=== PATIENT | female | born 1965 | race Caucasian/White ===

== ENCOUNTER 2019-04-09 23:29 | Emergency (ER) | payer SELFPAY ==
[2019-04-09 23:50] VITALS: BP 129/77
--- NOTE | 2019-04-10 00:03 | EDM.PDOC ---
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 Her tetanus is UTD. She has no known hx of any type of Hepatitis or HIV. She was tested for hepatitis in the past before starting Remicade for ulcerative colitis. 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: Other (see below) (none) - Related Data Allergies Allergy/AdvReac Type Severity Reaction Status Date / Time bupropion HCl [From Zyban] Allergy Rash Verified 12/20/16 18:11 latex Allergy Itching Verified 12/20/16 18:11 promethazine HCl AdvReac Shaking Verified 12/21/16 14:23 [From Phenergan] Home Meds: Home Meds Citalopram [Citalopram HBr] 20 mg PO DAILY 12/02/13 [History] Simvastatin 40 mg PO DAILY 12/02/13 [History] Alendronate Sodium [Alendronate] 1 tab PO WEEKLY 07/26/14 [History] Cholecalciferol (Vitamin D3) [Vitamin D3] 5,000 unit PO DAILY 07/26/14 [History] Cyanocobalamin (Vitamin B-12) [Vitamin B-12] 1,000 mcg PO DAILY 07/26/14 [ History] Estropipate 0.75 mg PO DAILY 07/26/14 [History] Folic Acid 1 mg PO DAILY 09/24/15 [History] Levothyroxine Sodium 88 mcg PO DAILY 12/20/16 [History] Ondansetron [Ondansetron ODT] 4 mg PO Q6H PRN #6 tab.rapdis 12/20/16 [Rx] Past Medical History HEENT History: Reports: Cataract, Impaired Vision Gastrointestinal History: Reports: Bowel Obstruction, Chronic Diarrhea, Inflammatory Bowel Disease Other Gastrointestinal History: crohns [employer]NER History: Reports: Psychiatric History: Reports: Depression Endocrine/Metabolic History: Reports: Hypothyroidism Oncologic (Cancer) History: Reports: Thyroid - Infectious Disease History Infectious Disease History: Reports: Chicken Pox - Past Surgical History HEENT Surgical History: Reports: Cataract Surgery Female Surgical History: Reports: Hysterectomy Endocrine Surgical History: Reports: Thyroidectomy Social & Family History - Tobacco Use Smoking Status *Q: Never Smoker - Caffeine Use Caffeine Use: Reports: None - Recreational Drug Use Recreational Drug Use: No ED ROS GENERAL - Review of Systems Review Of Systems: See Below Constitutional: Reports: No Symptoms Skin: Reports: Wound (tiny puncture to L index finger tip) Neurological: Reports: No Symptoms ED EXAM, SKIN/RASH Exam: See Below Exam Limited By: No Limitations General Appearance: Alert, WD/WN, No Apparent Distress Neurological: Alert, Oriented, CN II-XII Intact, Normal Cognition, No Motor/ Sensory Deficits Psychiatric: Normal Affect, Normal Mood Skin: Warm, Dry, Intact (puncture small enough as to be not visible to the eye. ), Normal Color, No Rash Location, Skin: Upper Extremity, Left Characteristics: Fine Associated features: No: Warmth, Tenderness, Swelling, Induration, Lymphangitis , Inflammation Lymphatic: No Adenopathy Course - Vital Signs Last Recorded V/S: Last Vital Signs Temp 35.4 C 04/09/19 23:49 Pulse 73 04/09/19 23:49 Resp 16 04/09/19 23:49 BP 129/77 04/09/19 23:49 Pulse Ox 96 04/09/19 23:49 - Orders/Labs/Meds Orders: Active Orders 24 hr Category Date Time Status HBSAG SCREEN Routine Lab 04/09/19 23:48 Ordered HCV ANTIBODY Routine Lab 04/09/19 23:48 Ordered HEPATITIS B SURF AB QUANT Routine Lab 04/09/19 23:48 Ordered HIV RAPID SCREEN RLFX COMFIRM [CHEM] Stat Lab 04/09/19 23:48 Ordered Departure - Departure Time of Disposition: 00:03 Disposition: Home, Self-Care 01 Condition: Good Clinical Impression: Needle stick injury of finger Qualifiers: Encounter type: initial encounter Qualified Code(s): S61.239A - Puncture wound without foreign body of unspecified finger without damage to nail, initial encounter; W27.3XXA - Contact with needle (sewing), initial encounter - Discharge Information *PRESCRIPTION DRUG MONITORING PROGRAM REVIEWED*: No *COPY OF PRESCRIPTION DRUG MONITORING REPORT IN PATIENT KAYE: No Instructions: Needlestick Injury, [id number] Referrals: Zeny Loredo MD [Primary Care Provider] - Additional Instructions: Follow up if you need interpretation of your pending test results. Recheck if any of the symptoms on your list develop. - My Orders Last 24 Hours: My Active Orders 04/09/19 23:48 HBSAG SCREEN Routine HCV ANTIBODY Routine HEPATITIS B SURF AB QUANT Routine HIV RAPID SCREEN RLFX COMFIRM [CHEM] Stat - Assessment/Plan Last 24 Hours: My Active Orders 04/09/19 23:48 HBSAG SCREEN Routine HCV ANTIBODY Routine HEPATITIS B SURF AB QUANT Routine HIV RAPID SCREEN RLFX COMFIRM [CHEM] Stat
[2019-04-11 08:16] LABS: HBSAG SCREEN Negative (Negative)
== END 2019-04-10 00:13 | disposition home or self-care (01) ==
LOC: JP.ED 23:29
DX: S61.231A Puncture wound without foreign body of left index finger without damage to nail, initial encounter (principal); E03.9 Hypothyroidism, unspecified; F32.9 Major depressive disorder, single episode, unspecified; Z79.899 Other long term (current) drug therapy; Z98.49 Cataract extraction status, unspecified eye; Z90.710 Acquired absence of both cervix and uterus; Z91.040 Latex allergy status; Z88.8 Allergy status to other drugs, medicaments and biological substances; W27.3XXA Contact with needle (sewing), initial encounter
CPT/HCPCS: 36415; 86317; 86803; 87340; 87449; 99281; 99283

== ENCOUNTER 2020-09-18 13:17 | Emergency (ER) | payer BC ==
[2020-09-18 13:33] VITALS: BP 133/79; PULSE 76
[2020-09-18] MEDS ORDERED: Ketorolac 30 MG/ML SDV IM ONE (14:13)
[2020-09-18] MEDS ORDERED: Sodium Chloride 0.9% 1,000 ML IV ONE ×2 (14:13→14:20)
[2020-09-18] MEDS ORDERED: Sodium Chloride 0.9% 10 ML Syringe FLUSH PRN ×2 (14:14→14:21)
[2020-09-18] MEDS ORDERED: Ketorolac 30 MG/ML SDV IVPUSH ONE (14:22)
--- NOTE | 2020-09-18 14:31 | EDM.PDOC ---
<RoseannDasha M - Last Filed: 09/18/20 15:37> ED HPI GENERAL MEDICAL PROBLEM - General Chief Complaint: Respiratory Problem Stated Complaint: CHEST PAINS Time Seen by Provider: 09/18/20 13:35 Source of Information: Reports: Patient, RN, RN Notes Reviewed History Limitations: Reports: No Limitations - History of Present Illness INITIAL COMMENTS - FREE TEXT/NARRATIVE: Pt seen PCP in clinic on Tuesday and indicated they prescribed prednisone taper dose and Z pack. Pt does not feel better and c/o RUQ pain 6/10 that radiates to R flank. Clinic told her to come to ER for evaluation. Pt denies N/V, night sweats, chills, or fever. SOB with exertion. Ileostomy is producing loose stools. - Related Data Allergies Allergy/AdvReac Type Severity Reaction Status Date / Time bupropion HCl [From Zyban] Allergy Rash Verified 12/20/16 18:11 latex Allergy Itching Verified 12/20/16 18:11 promethazine HCl AdvReac Shaking Verified 12/21/16 14:23 [From Phenergan] Home Meds: Home Meds Citalopram [Citalopram HBr] 20 mg PO DAILY 12/02/13 [History] Alendronate Sodium [Alendronate] 1 tab PO WEEKLY 07/26/14 [History] Levothyroxine Sodium 88 mcg PO DAILY 12/20/16 [History] Azithromycin [Zithromax] 250 mg PO DAILY 09/18/20 [History] Cyclobenzaprine [Flexeril] 10 mg PO ASDIRECTED 09/18/20 [History] Simvastatin [Zocor] 10 mg PO DAILY 09/18/20 [History] predniSONE [Prednisone] 20 mg PO DAILY 09/18/20 [History] Past Medical History HEENT History: Reports: Cataract, Impaired Vision Gastrointestinal History: Reports: Bowel Obstruction, Chronic Diarrhea, Inflammatory Bowel Disease Other Gastrointestinal History: crohns [employer]GAGE History: Reports: Psychiatric History: Reports: Depression Endocrine/Metabolic History: Reports: Hypothyroidism Oncologic (Cancer) History: Reports: Thyroid - Infectious Disease History Infectious Disease History: Reports: Chicken Pox - Past Surgical History HEENT Surgical History: Reports: Cataract Surgery Female Surgical History: Reports: Hysterectomy Endocrine Surgical History: Reports: Thyroidectomy Social & Family History - Tobacco Use Tobacco Use Status *Q: Never Tobacco User - Caffeine Use Caffeine Use: Reports: None - Recreational Drug Use Recreational Drug Use: No ED ROS GENERAL - Review of Systems Review Of Systems: See Below Constitutional: Reports: No Symptoms HEENT: Reports: No Symptoms Respiratory: Reports: Shortness of Breath (with exertion) Cardiovascular: Reports: No Symptoms Endocrine: Reports: No Symptoms GI/Abdominal: Reports: Other (ileostomy. RUQ discomfort. ) : Reports: No Symptoms Skin: Reports: No Symptoms Neurological: Reports: No Symptoms Psychiatric: Reports: No Symptoms Hematologic/Lymphatic: Reports: No Symptoms Immunologic: Reports: No Symptoms ED EXAM, GENERAL - Physical Exam Exam: See Below Exam Limited By: No Limitations General Appearance: Alert, WD/WN, Mild Distress Head: Normocephalic Neck: Normal Inspection, Full Range of Motion Respiratory/Chest: No Respiratory Distress, Lungs Clear, Normal Breath Sounds Cardiovascular: Regular Rate, Rhythm GI/Abdominal: Normal Bowel Sounds, Soft (Female) Exam: Deferred Rectal (Female) Exam: Deferred Extremities: Normal Range of Motion Neurological: Alert, Oriented, CN II-XII Intact Psychiatric: Normal Affect, Anxious Skin Exam: Warm, Dry Course - Orders/Labs/Meds Labs: Labs look good. - Radiology Interpretation Free Text/Narrative:: CXR looks good Departure - Departure Time of Disposition: 15:38 Disposition: Home, Self-Care 01 Condition: Good Clinical Impression: Bronchitis, Atypical chest pain - Discharge Information *PRESCRIPTION DRUG MONITORING PROGRAM REVIEWED*: Not Applicable *COPY OF PRESCRIPTION DRUG MONITORING REPORT IN PATIENT KAYE: Not Applicable Instructions: Nonspecific Chest Pain, Adult, [id number], Upper Respiratory Infection, Adult, [id number] Referrals: Kosta Birch NP [Primary Care Provider] - Forms: ED Department Discharge Care Plan Goals: Your chest xray and labs look great. Continue with the prescribed medication from your primary provider. If your symptoms do not improve or worsen, please call your primary provider or come back to the Er. Make a conscious effort to stay hydrated and eat a well balanced diet. Sepsis Event Note (ED) - Evaluation Sepsis Screening Result: No Definite Risk - Problem List Review Problem List Initiated/Reviewed/Updated: Yes - Assessment/Plan Plan: Your chest xray and labs look great. Continue with the prescribed medication from your primary provider. If your symptoms do not improve or worsen, please call your primary provider or come back to the Er. Make a conscious effort to stay hydrated and eat a well balanced diet. <Denis Hope - Last Filed: 09/20/20 12:04> Course - Vital Signs Last Recorded V/S: Last Vital Signs Temp 98.1 F 09/18/20 13:33 Pulse 76 09/18/20 13:33 Resp 16 09/18/20 13:33 BP 133/79 09/18/20 13:33 Pulse Ox 96 09/18/20 13:33 - Orders/Labs/Meds Labs: Laboratory Tests 09/18/20 Range/Units 14:34 Sodium 138 L (140-148) mmol/L Potassium 4.2 (3.6-5.2) mmol/L Chloride 103 (100-108) mmol/L Carbon Dioxide 26 (21-32) mmol/L Anion Gap 13.2 (5.0-14.0) mmol/L BUN 19 H (7-18) mg/dL Creatinine 0.9 (0.6-1.0) mg/dL Est Cr Clr Drug Dosing 67.07 mL/min Estimated GFR (MDRD) > 60 (>60) Glucose 106 (74-106) mg/dL Calcium 9.4 (8.5-10.1) mg/dL Total Bilirubin 0.3 (0.2-1.0) mg/dL AST 19 (15-37) U/L ALT 27 (12-78) U/L Alkaline Phosphatase 61 (46-116) U/L Total Protein 7.6 (6.4-8.2) g/dL Albumin 3.6 (3.4-5.0) g/dL Globulin 4.0 H (2.3-3.5) g/dL Albumin/Globulin Ratio 0.9 L (1.2-2.2) Meds: Medications Discontinued Medications Generic Name Dose Route Start Last Admin Trade Name Freq PRN Reason Stop Dose Admin Sodium Chloride 1,000 mls @ 999 mls/hr 09/18/20 14:13 Normal Saline IV 09/18/20 15:13 .BOLUS ONE Sodium Chloride 1,000 mls @ 999 mls/hr 09/18/20 14:20 09/18/20 14:36 Normal Saline IV 09/18/20 15:20 999 mls/hr .BOLUS ONE Administration Ketorolac Tromethamine 30 mg 09/18/20 14:13 Toradol IM 09/18/20 14:14 ONETIME ONE Ketorolac Tromethamine 30 mg 09/18/20 14:22 09/18/20 14:34 Toradol IVPUSH 09/18/20 14:23 30 mg ONETIME ONE Administration Sodium Chloride 10 ml 09/18/20 14:14 Saline Flush FLUSH ASDIRECTED PRN Keep Vein Open Sodium Chloride 10 ml 09/18/20 14:21 09/18/20 14:36 Saline Flush FLUSH 10 ml ASDIRECTED PRN Administration Keep Vein Open Departure - Departure Time of Disposition: 15:51 Attestation - Student - Attestation Statement Attestation Statement: I personally performed or re-performed the physical examination and medical decision making. I have verified all student documentation or findings, including history, physical exam and/or medical decision making.
--- NOTE | 2020-09-18 14:44 | CR ---
CHEST: 2 view CLINICAL HISTORY:SOB COMPARISON:2010 FINDINGS: The heart size, pulmonary vascularity and hilar structures are normal. No infiltrate effusion or pneumothorax is seen. IMPRESSION: No acute cardiopulmonary process.
== END 2020-09-18 15:50 | disposition home or self-care (01) ==
LOC: JP.ED 13:17
DX: J40 Bronchitis, not specified as acute or chronic (principal); F32.9 Major depressive disorder, single episode, unspecified; E03.9 Hypothyroidism, unspecified; Z90.710 Acquired absence of both cervix and uterus; Z91.040 Latex allergy status; Z88.8 Allergy status to other drugs, medicaments and biological substances; Z79.899 Other long term (current) drug therapy
CPT/HCPCS: 36415; 71046; 80053; 96374; 99285; J1885; J7040; 99284

== ENCOUNTER 2022-06-18 15:41 | Emergency (ER) | payer BC ==
[2022-06-18] MEDS ORDERED: diphenhydrAMINE 25 MG Cap PO ONE (16:34)
[2022-06-18] MEDS ORDERED: EPINEPHrine 1 MG/ML SDV IM ONE (16:34)
[2022-06-18] MEDS ORDERED: Ondansetron 4 MG Tab.DIS PO ONE (16:34)
[2022-06-18 17:11] VITALS: PULSE 74
[2022-06-18 17:43] VITALS: BP 111/53
== END 2022-06-18 17:44 | disposition home or self-care (01) ==
LOC: JP.ED 15:41
DX: T63.481A Toxic effect of venom of other arthropod, accidental (unintentional), initial encounter (principal); Z88.8 Allergy status to other drugs, medicaments and biological substances; Z91.040 Latex allergy status; Z79.899 Other long term (current) drug therapy
CPT/HCPCS: 96372; 99282; A9270; J0171; Q0162; 99283

== ENCOUNTER 2022-12-07 23:48 | Emergency (ER) | payer BC ==
[2022-12-08 00:52] LABS: ESTIMATED GFR 65 mL/min (>60)
[2022-12-08] MEDS ORDERED: Sodium Chloride 0.9% 10 ML Syringe FLUSH PRN (01:55)
[2022-12-08] MEDS ORDERED: Sodium Chloride 0.9% 1,000 ML IV SCH (02:00)
[2022-12-08 03:20] VITALS: BP 121/60; PULSE 64
== END 2022-12-08 03:20 | disposition home or self-care (01) ==
LOC: JP.ED 23:48
DX: R20.2 Paresthesia of skin (principal); E86.0 Dehydration; E03.9 Hypothyroidism, unspecified; Z91.040 Latex allergy status; Z88.8 Allergy status to other drugs, medicaments and biological substances; Z79.899 Other long term (current) drug therapy
CPT/HCPCS: 36415; 70450; 80053; 81001; 85025; 96360; 99285; J3490; J7030; 99283

== ENCOUNTER 2023-08-17 14:29 | Emergency (ER) | payer BC, OTHER ==
[2023-08-17] MEDS ORDERED: Sodium Chloride 0.9% 1,000 ML IV ONE (15:27)
[2023-08-17] MEDS ORDERED: Sodium Chloride 0.9% 10 ML Syringe FLUSH PRN (15:27)
[2023-08-17 15:42] LABS: BASOPHILS ABSOLUTE AUTO 0.04 K/uL (0.00-0.10); BASOPHILS PERCENT AUTO 1.1 % (0.1-1.3); EOSINOPHILS ABSOLUTE AUTO 0.04 K/uL (0.00-0.40); EOSINOPHILS PERCENT AUTO 1.1 % (0.0-5.4); HEMATOCRIT 37.7 % (34.3-46.0); HEMOGLOBIN 11.7 g/dL (11.2-15.5); IMMATURE GRAN PERCENT AUTO 0.3 % (0.0-0.7); LYMPHOCYTES ABSOLUTE AUTO 1.02 K/uL (0.8-3.3); LYMPHOCYTES PERCENT AUTO 28.3 % (11.4-47.7); MEAN CORPUSCULAR HEMOGLOBIN 22.9 pg (31.6-35.5); MEAN CORPUSCULAR VOLUME 73.8 fL (81.4-99.0); MONOCYTES ABSOLUTE AUTO 0.67 K/uL (0.20-0.90); MONOCYTES PERCENT AUTO 18.6 % (3.3-12.6); NEUTROPHILS ABSOLUTE AUTO 1.82 K/uL (1.0-7.6); NEUTROPHILS PERCENT AUTO 50.6 % (40.0-78.1); PLATELET COUNT,PLT 312 K/uL (130-375); RED BLOOD CELL COUNT 5.11 M/uL (3.77-5.24); WHITE BLOOD CELL COUNT,WBC 3.6 K/uL (3.2-11.0)
[2023-08-17 15:43] LABS: IMMATURE GRAN ABSOLUTE AUTO 0.01 K/uL (0.00-0.23)
[2023-08-17 16:00] LABS: BLOOD UREA NITROGEN,BUN 18 mg/dL (7-18); C-REACTIVE PROTEIN 2.96 mg/dL (0.0-0.3); CALCIUM 9.5 mg/dL (8.5-10.1); CARBON DIOXIDE,CO2 25 mmol/L (21-32); CHLORIDE,CL 100 mmol/L (100-108); CREATININE 1.1 mg/dL (0.6-1.0); ESTIMATED GFR 58 mL/min (>60); GLUCOSE RANDOM 105 mg/dL (74-106); MAGNESIUM 1.7 mg/dL (1.8-2.4); POTASSIUM,K 3.2 mmol/L (3.6-5.2); SODIUM,NA 134 mmol/L (140-148)
[2023-08-17 16:05] LABS: ANION GAP 12.2 mmol/L (5.0-14.0)
[2023-08-17] MEDS ORDERED: Magnesium Oxide 400 MG Tab PO ONE (16:10)
[2023-08-17] MEDS ORDERED: Potassium Chloride 20 MEQ Tab.ER PO ONE (16:10)
[2023-08-17 18:01] VITALS: BP 113/57; PULSE 76
== END 2023-08-17 17:35 | disposition home or self-care (01) ==
LOC: JP.ED 14:29
DX: K63.89 Other specified diseases of intestine (principal); E03.9 Hypothyroidism, unspecified; U07.1 COVID-19; Z93.2 Ileostomy status; Z79.899 Other long term (current) drug therapy; Z91.040 Latex allergy status; Z88.8 Allergy status to other drugs, medicaments and biological substances
CPT/HCPCS: 36415; 71045; 80048; 83605; 83735; 85025; 85379; 86140; 96360; 99285; A9270; J3490; J7030; 99284

== ENCOUNTER 2024-02-24 06:55 | Day surgery (SDC) | payer BC ==
[2024-02-24] MEDS ORDERED: Midazolam 1 MG/ML 2 ML SDV ONE (07:10)
[2024-02-24] MEDS ORDERED: Propofol 200 MG/20 ML SDV ONE ×2 (07:10→08:56)
[2024-02-24] MEDS ORDERED: fentaNYL 100 MCG/2 ML SDV ONE (07:10)
[2024-02-24] MEDS: Acetaminophen 500 MG Tab PO ONE (07:25)
[2024-02-24] MEDS: Lactated Ringers 1,000 ML IV SCH (07:52)
[2024-02-24] MEDS ORDERED: ceFAZolin 2 GM in Sodium Chloride 0.9% 50 ML IV ONE (08:00)
[2024-02-24] MEDS: Lidocaine 1% with EPINEPHrine 1:100,000 50 ML MDV ONE (08:59)
[2024-02-24] MEDS: Bacitracin Oint 1 GM U/D Packet ONE (08:59)
[2024-02-24] MEDS: Bupivacaine 0.5% 50 ML MDV ONE (08:59)
[2024-02-24 10:11] VITALS: BP 105/50; PULSE 66
[2024-02-24] MEDS: ceFAZolin 2 GM in Premix Bag 1 BAG IV ONE (13:16)
== END 2024-02-24 10:20 | disposition home or self-care (01) ==
LOC: JP.SDS 06:55
PROVIDERS: ATTEND Student in an Organized Health Care Education/Training Program
DX: D17.24 Benign lipomatous neoplasm of skin and subcutaneous tissue of left leg (principal); E78.5 Hyperlipidemia, unspecified; F33.42 Major depressive disorder, recurrent, in full remission; E89.0 Postprocedural hypothyroidism; Z79.899 Other long term (current) drug therapy; Z91.040 Latex allergy status; Z91.030 Bee allergy status
CPT/HCPCS: 27337; A9270; J0665; J0690; J2250; J2704; J3010; J7120; 88304

== ENCOUNTER 2025-01-16 21:34 | Emergency (ER) | payer BC ==
[2025-01-16] MEDS: Sodium Chloride 0.9% 1,000 ML IV ONE (22:05)
[2025-01-16 22:33] LABS: BASOPHILS ABSOLUTE AUTO 0.04 K/uL (0.00-0.10); BASOPHILS PERCENT AUTO 1.3 % (0.1-1.3); EOSINOPHILS ABSOLUTE AUTO 0.03 K/uL (0.00-0.40); HEMATOCRIT 42.9 % (34.3-46.0); HEMOGLOBIN 14.6 g/dL (11.2-15.5); IMMATURE GRAN PERCENT AUTO 0.7 % (0.0-0.7); LYMPHOCYTES ABSOLUTE AUTO 0.77 K/uL (0.8-3.3); LYMPHOCYTES PERCENT AUTO 25.8 % (11.4-47.7); MEAN CORPUSCULAR HEMOGLOBIN 30.8 pg (31.6-35.5); MEAN CORPUSCULAR VOLUME 90.5 fL (81.4-99.0); MONOCYTES ABSOLUTE AUTO 0.48 K/uL (0.20-0.90); MONOCYTES PERCENT AUTO 16.1 % (3.3-12.6); NEUTROPHILS ABSOLUTE AUTO 1.65 K/uL (1.0-7.6); NEUTROPHILS PERCENT AUTO 55.1 % (40.0-78.1); PLATELET COUNT,PLT 218 K/uL (130-375); RED BLOOD CELL COUNT 4.74 M/uL (3.77-5.24)
[2025-01-16 22:35] LABS: IMMATURE GRAN ABSOLUTE AUTO 0.02 K/uL (0.00-0.23)
[2025-01-16 22:44] LABS: ALANINE AMINOTRANSFERASE,ALT 31 U/L (12-78); ALBUMIN 3.7 g/dL (3.4-5.0); ALKALINE PHOSPHATASE 62 U/L (46-116); ANION GAP 13.6 mmol/L (5.0-14.0); ASPARTATE AMNIOTRANSFERASE,AST 27 U/L (15-37); BILIRUBIN TOTAL 0.6 mg/dL (0.2-1.0); BLOOD UREA NITROGEN,BUN 14 mg/dL (7-18); CALCIUM 9.2 mg/dL (8.5-10.1); CARBON DIOXIDE,CO2 22 mmol/L (21-32); CHLORIDE,CL 101 mmol/L (100-108); EST CRCL DRUG DOSING (CG) 55.97 mL/min; ESTIMATED GFR 64 mL/min (>60); GLUCOSE RANDOM 104 mg/dL (74-106); MAGNESIUM 1.7 mg/dL (1.8-2.4); POTASSIUM,K 3.6 mmol/L (3.6-5.2); PROTEIN TOTAL,TP 7.3 g/dL (6.4-8.2); SODIUM,NA 133 mmol/L (140-148)
[2025-01-16 23:12] LABS: CORONAVIRUS COVID-19 NAA NEGATIVE (NEGATIVE); INFLUENZA A NAA POSITIVE (NEGATIVE); INFLUENZA B NAA NEGATIVE (NEGATIVE); RESPIRATORY SYNCYTIAL VIR NAA NEGATIVE (NEGATIVE)
[2025-01-16] MEDS: Magnesium Oxide 400 MG Tab PO ONE (23:44)
[2025-01-17 00:51] VITALS: BP 101/57; PULSE 95
== END 2025-01-16 23:45 | disposition home or self-care (01) ==
LOC: JP.ED 21:34
DX: J10.1 Influenza due to other identified influenza virus with other respiratory manifestations (principal); E78.00 Pure hypercholesterolemia, unspecified; E03.9 Hypothyroidism, unspecified; Z91.030 Bee allergy status; Z91.040 Latex allergy status; Z88.8 Allergy status to other drugs, medicaments and biological substances; Z88.5 Allergy status to narcotic agent; Z79.899 Other long term (current) drug therapy; Z90.49 Acquired absence of other specified parts of digestive tract; Z79.890 Hormone replacement therapy; Z90.710 Acquired absence of both cervix and uterus; Z87.891 Personal history of nicotine dependence
CPT/HCPCS: 0241U; 36415; 80053; 83605; 83735; 85025; 96360; 99284-25; A9270-GY

== ENCOUNTER 2025-05-10 20:18 | Inpatient (IN) | payer BC ==
[2025-05-10] MEDS ORDERED: Naloxone 0.4 MG/ML SDV IVPUSH PRN (21:38)
[2025-05-10] MEDS: HYDROmorphone 0.5 MG/0.5 ML Syringe IVPUSH ONE ×2 (21:44→23:42)
[2025-05-10 21:45] LABS: BASOPHILS ABSOLUTE AUTO 0.07 K/uL (0.00-0.10); BASOPHILS PERCENT AUTO 1.6 % (0.1-1.3); EOSINOPHILS ABSOLUTE AUTO 0.24 K/uL (0.00-0.40); EOSINOPHILS PERCENT AUTO 5.4 % (0.0-5.4); HEMATOCRIT 43.9 % (34.3-46.0); HEMOGLOBIN 14.5 g/dL (11.2-15.5); IMMATURE GRAN ABSOLUTE AUTO 0.01 K/uL (0.00-0.23); IMMATURE GRAN PERCENT AUTO 0.2 % (0.0-0.7); LYMPHOCYTES ABSOLUTE AUTO 1.07 K/uL (0.8-3.3); LYMPHOCYTES PERCENT AUTO 24.1 % (11.4-47.7); MEAN CORPUSCULAR HEMOGLOBIN 30.9 pg (31.6-35.5); MEAN CORPUSCULAR VOLUME 93.4 fL (81.4-99.0); MONOCYTES ABSOLUTE AUTO 0.35 K/uL (0.20-0.90); MONOCYTES PERCENT AUTO 7.9 % (3.3-12.6); NEUTROPHILS PERCENT AUTO 60.8 % (40.0-78.1); PLATELET COUNT,PLT 263 K/uL (130-375); WHITE BLOOD CELL COUNT,WBC 4.4 K/uL (3.2-11.0)
[2025-05-10] MEDS: Iopamidol 612 MG/ML 100 ML Bottle IV SCH (22:03)
[2025-05-10] MEDS: Sodium Chloride 0.9% 80 ML IV SCH (22:03)
[2025-05-10] MEDS: Sodium Chloride 0.9% 1,000 ML IV SCH (22:11)
[2025-05-10 22:18] LABS: ALANINE AMINOTRANSFERASE,ALT 30 U/L (12-78); ALBUMIN 3.8 g/dL (3.4-5.0); ALKALINE PHOSPHATASE 62 U/L (46-116); ANION GAP 6.2 mmol/L (5.0-14.0); ASPARTATE AMNIOTRANSFERASE,AST 23 U/L (15-37); BILIRUBIN TOTAL 0.5 mg/dL (0.2-1.0); BLOOD UREA NITROGEN,BUN 15 mg/dL (7-18); CALCIUM 9.6 mg/dL (8.5-10.1); CARBON DIOXIDE,CO2 30 mmol/L (21-32); CHLORIDE,CL 104 mmol/L (100-108); CREATININE 0.9 mg/dL (0.6-1.0); EST CRCL DRUG DOSING (CG) 63.03 mL/min; ESTIMATED GFR 72 mL/min (>60); GLUCOSE RANDOM 112 mg/dL (74-106); POTASSIUM,K 3.8 mmol/L (3.6-5.2); PROTEIN TOTAL,TP 7.7 g/dL (6.4-8.2); SODIUM,NA 140 mmol/L (140-148)
[2025-05-10 22:21] LABS: LACTIC ACID 1.7 mmol/L (0.4-2.0)
[2025-05-10 22:27] LABS: C-REACTIVE PROTEIN <0.50 mg/dL (<0.50)
[2025-05-10] MEDS: Lidocaine 4% Top Soln 50 ML Bottle MUCMEM ONE (23:54)
[2025-05-11] MEDS ORDERED: Melatonin 3 MG Tab PO PRN (00:40)
[2025-05-11] MEDS ORDERED: Ondansetron 4 MG Tab.DIS PO PRN (00:40)
[2025-05-11] MEDS ORDERED: LORazepam 2 MG/ML SDV IVPUSH PRN (00:40)
[2025-05-11] MEDS: HYDROmorphone 0.5 MG/0.5 ML Syringe IM ONE (00:49)
[2025-05-11] MEDS: Pantoprazole 40 MG Vial IVPUSH SCH ×2 (01:16→21:23)
[2025-05-11] MEDS: Sodium Chloride 0.9% 1,000 ML IV SCH (01:16)
[2025-05-11] MEDS: HYDROmorphone 1 MG/ML Syringe IVPUSH PRN (03:32)
[2025-05-11 05:56] LABS: HEMATOCRIT 40.9 % (34.3-46.0); HEMOGLOBIN 13.4 g/dL (11.2-15.5); MEAN CORPUSCULAR HEMOGLOBIN 30.9 pg (31.6-35.5); MEAN CORPUSCULAR HGB CONC 32.8 g/dL (31.6-35.5); MEAN CORPUSCULAR VOLUME 94.5 fL (81.4-99.0); RED BLOOD CELL COUNT 4.33 M/uL (3.77-5.24); WHITE BLOOD CELL COUNT,WBC 6.2 K/uL (3.2-11.0)
[2025-05-11 06:25] LABS: CALCIUM 9.1 mg/dL (8.5-10.1); CREATININE 0.8 mg/dL (0.6-1.0); EST CRCL DRUG DOSING (CG) 70.9 mL/min; TSH ULTRASENSITIVE 6.561 uIU/mL (0.358-3.740)
[2025-05-11] MEDS ORDERED: HYDROmorphone 0.5 MG/0.5 ML Syringe IVPUSH PRN (07:03)
[2025-05-11] MEDS: Ondansetron 4 MG/2 ML SDV IV PRN (07:13)
[2025-05-11] MEDS: Citalopram 20 MG Tab PO SCH (08:32)
[2025-05-11] MEDS: Levothyroxine 100 MCG Tab PO SCH (08:32)
[2025-05-11] MEDS: Phenol/Sodium Phenolate Spray 180 ML Bottle MUCMEM PRN (11:09)
[2025-05-11] MEDS: Benzocaine/Cetylpyridinium/Menthol Lozenge MUCMEM PRN (21:22)
[2025-05-12] MEDS: Acetaminophen 325 MG Tab PO PRN (00:07)
[2025-05-12] MEDS: Diatrizoate Meglumine/Diatrizoate Sodium 37% 120 ML Bottle PO SCH (00:08)
[2025-05-12 12:03] VITALS: BP 101/54; PULSE 58
== END 2025-05-12 14:36 | disposition home or self-care (01) | DRG 252 ==
LOC: JP.ED 20:18 → JP.MS 23:14
PROVIDERS: ADMIT Registered Nurse; ATTEND Surgery
DX: K91.30 Postprocedural intestinal obstruction, unspecified as to partial versus complete (principal); H54.7 Unspecified visual loss; E78.00 Pure hypercholesterolemia, unspecified; F32.A Depression, unspecified; E89.0 Postprocedural hypothyroidism; E86.0 Dehydration; K50.90 Crohn's disease, unspecified, without complications; Z91.030 Bee allergy status; Z98.49 Cataract extraction status, unspecified eye; Z98.890 Other specified postprocedural states; Z90.49 Acquired absence of other specified parts of digestive tract; Z88.8 Allergy status to other drugs, medicaments and biological substances; Z85.850 Personal history of malignant neoplasm of thyroid; Z90.710 Acquired absence of both cervix and uterus; Z79.899 Other long term (current) drug therapy
CPT/HCPCS: 36415; 71045; 71045-26; 74018; 74018-26; 74019; 74019-26; 74177; 80048; 80053; 83605; 84443; 85025; 85027; 86140; 96374; 99223; 99232; 99238; 99284; 99285-25; A9270-GY; J1171; J2405; J2470; J7030; Q9963; Q9967

== ENCOUNTER 2025-06-21 19:42 | Inpatient (IN) | payer BC ==
[2025-06-21] MEDS ORDERED: Naloxone 0.4 MG/ML SDV IVPUSH PRN (21:34)
[2025-06-21] MEDS: Ondansetron 4 MG/2 ML SDV IVPUSH ONE (21:46)
[2025-06-21 21:59] LABS: BASOPHILS ABSOLUTE AUTO 0.08 K/uL (0.00-0.10); BASOPHILS PERCENT AUTO 1.6 % (0.1-1.3); EOSINOPHILS ABSOLUTE AUTO 0.45 K/uL (0.00-0.40); EOSINOPHILS PERCENT AUTO 9.0 % (0.0-5.4); IMMATURE GRAN PERCENT AUTO 0.2 % (0.0-0.7); LYMPHOCYTES ABSOLUTE AUTO 1.62 K/uL (0.8-3.3); LYMPHOCYTES PERCENT AUTO 32.5 % (11.4-47.7); MONOCYTES ABSOLUTE AUTO 0.40 K/uL (0.20-0.90); MONOCYTES PERCENT AUTO 8.0 % (3.3-12.6); NEUTROPHILS ABSOLUTE AUTO 2.43 K/uL (1.0-7.6); NEUTROPHILS PERCENT AUTO 48.7 % (40.0-78.1); PLATELET COUNT,PLT 289 K/uL (130-375); RED BLOOD CELL COUNT 4.64 M/uL (3.77-5.24); WHITE BLOOD CELL COUNT,WBC 5.0 K/uL (3.2-11.0)
[2025-06-21 22:01] LABS: IMMATURE GRAN ABSOLUTE AUTO 0.01 K/uL (0.00-0.23)
[2025-06-21 22:05] LABS: A/G RATIO 1.0 (1.2-2.2); ALANINE AMINOTRANSFERASE,ALT 33 U/L (12-78); ASPARTATE AMNIOTRANSFERASE,AST 23 U/L (15-37); BILIRUBIN TOTAL 0.5 mg/dL (0.2-1.0); BLOOD UREA NITROGEN,BUN 13 mg/dL (7-18); CARBON DIOXIDE,CO2 29 mmol/L (21-32); CHLORIDE,CL 104 mmol/L (100-108); CREATININE 1.0 mg/dL (0.6-1.0); EST CRCL DRUG DOSING (CG) 56.72 mL/min; ESTIMATED GFR 64 mL/min (>60); GLUCOSE RANDOM 100 mg/dL (74-106); POTASSIUM,K 3.9 mmol/L (3.6-5.2); PROTEIN TOTAL,TP 7.5 g/dL (6.4-8.2); SODIUM,NA 141 mmol/L (140-148)
[2025-06-21 22:10] LABS: LACTIC ACID 0.7 mmol/L (0.4-2.0)
[2025-06-21] MEDS: Iopamidol 612 MG/ML 100 ML Bottle IV SCH (22:41)
[2025-06-22] MEDS: LORazepam 2 MG/ML SDV IVPUSH ONE (00:16)
[2025-06-22] MEDS: Lidocaine 2% Jelly 10 ML Urojet MUCMEM ONE (00:17)
[2025-06-22] MEDS ORDERED: Ondansetron 4 MG/2 ML SDV IV PRN (00:23)
[2025-06-22] MEDS ORDERED: Ondansetron 4 MG Tab.DIS PO PRN (00:23)
[2025-06-22] MEDS ORDERED: Naloxone 0.4 MG/ML SDV IVPUSH PRN (00:23)
[2025-06-22] MEDS ORDERED: LORazepam 2 MG/ML SDV IVPUSH PRN (00:23)
[2025-06-22] MEDS ORDERED: Benzocaine/Cetylpyridinium/Menthol Lozenge MUCMEM PRN (00:44)
[2025-06-22 05:44] LABS: PLATELET COUNT,PLT 226.0 K/uL (130-375); RED BLOOD CELL COUNT 4.28 M/uL (3.77-5.24); WHITE BLOOD CELL COUNT,WBC 6.1 K/uL (3.2-11.0)
[2025-06-22 06:02] LABS: BLOOD UREA NITROGEN,BUN 13.0 mg/dL (7-18); CARBON DIOXIDE,CO2 28.0 mmol/L (21-32); CHLORIDE,CL 109.0 mmol/L (100-108); CREATININE 0.8 mg/dL (0.6-1.0); EST CRCL DRUG DOSING (CG) 70.72 mL/min; ESTIMATED GFR 83.0 mL/min (>60); GLUCOSE RANDOM 103.0 mg/dL (74-106); POTASSIUM,K 4.2 mmol/L (3.6-5.2); SODIUM,NA 142.0 mmol/L (140-148)
[2025-06-23 05:17] VITALS: BP 113/79; PULSE 70
== END 2025-06-23 10:30 | disposition home or self-care (01) | DRG 252 ==
LOC: JP.ED 19:42 → JP.MS 23:44 → OBSVTOIN 06-22 09:55
PROVIDERS: ADMIT Internal Medicine; ATTEND Internal Medicine
DX: K91.30 Postprocedural intestinal obstruction, unspecified as to partial versus complete (principal); H54.7 Unspecified visual loss; E78.00 Pure hypercholesterolemia, unspecified; F32.A Depression, unspecified; E03.9 Hypothyroidism, unspecified; Z90.49 Acquired absence of other specified parts of digestive tract; Z90.710 Acquired absence of both cervix and uterus; Z88.8 Allergy status to other drugs, medicaments and biological substances; Z79.899 Other long term (current) drug therapy; Z98.49 Cataract extraction status, unspecified eye; Z91.040 Latex allergy status; Z98.890 Other specified postprocedural states; Z87.891 Personal history of nicotine dependence
CPT/HCPCS: 36415; 43752; 71045; 71045-26; 74177; 80048; 80053; 82272; 83605; 83690; 85025; 85027; 86140; 96361; 96374; 96375; 96376; 99232; 99238; 99285; 99285-25; A9270-GY; G0378; J1171; J2060; J2405; J7030; Q9967

== ENCOUNTER 2025-09-17 23:00 | Emergency (ER) | payer OTHER, BC ==
[2025-09-17 23:35] LABS: BASOPHILS ABSOLUTE AUTO 0.07 K/uL (0.00-0.10); BASOPHILS PERCENT AUTO 1.5 % (0.1-1.3); EOSINOPHILS ABSOLUTE AUTO 0.36 K/uL (0.00-0.40); EOSINOPHILS PERCENT AUTO 7.8 % (0.0-5.4); IMMATURE GRAN PERCENT AUTO 0.4 % (0.0-0.7); LYMPHOCYTES ABSOLUTE AUTO 1.24 K/uL (0.8-3.3); LYMPHOCYTES PERCENT AUTO 26.7 % (11.4-47.7); MONOCYTES ABSOLUTE AUTO 0.35 K/uL (0.20-0.90); MONOCYTES PERCENT AUTO 7.5 % (3.3-12.6); NEUTROPHILS ABSOLUTE AUTO 2.60 K/uL (1.0-7.6); NEUTROPHILS PERCENT AUTO 56.1 % (40.0-78.1); PLATELET COUNT,PLT 252 K/uL (130-375); RED BLOOD CELL COUNT 4.71 M/uL (3.77-5.24); WHITE BLOOD CELL COUNT,WBC 4.6 K/uL (3.2-11.0)
[2025-09-17 23:50] LABS: BLOOD UREA NITROGEN,BUN 25.0 mg/dL (7-18); CARBON DIOXIDE,CO2 29.0 mmol/L (21-32); CHLORIDE,CL 102.0 mmol/L (100-108); CREATININE 0.9 mg/dL (0.6-1.0); EST CRCL DRUG DOSING (CG) 63.03 mL/min; ESTIMATED GFR 72.0 mL/min (>60); GLUCOSE RANDOM 86.0 mg/dL (74-106); POTASSIUM,K 3.6 mmol/L (3.6-5.2); SODIUM,NA 137.0 mmol/L (140-148)
[2025-09-17 23:55] LABS: IMMATURE GRAN ABSOLUTE AUTO 0.02 K/uL (0.00-0.23)
[2025-09-17] MEDS: Sodium Chloride 0.9% 10 ML Syringe FLUSH PRN (23:56)
[2025-09-17] MEDS: Iopamidol 612 MG/ML 100 ML Bottle IV SCH (23:56)
[2025-09-17] MEDS: Ketorolac 15 MG/ML SDV IVPUSH ONE (23:59)
[2025-09-18 00:04] VITALS: BP 125/76; PULSE 65
== END 2025-09-18 01:01 | disposition home or self-care (01) ==
LOC: JP.ED 23:00
DX: S20.211A Contusion of right front wall of thorax, initial encounter (principal); S80.211A Abrasion, right knee, initial encounter; E78.00 Pure hypercholesterolemia, unspecified; E03.9 Hypothyroidism, unspecified; Z88.5 Allergy status to narcotic agent; Z91.030 Bee allergy status; Z91.040 Latex allergy status; Z88.8 Allergy status to other drugs, medicaments and biological substances; Z79.890 Hormone replacement therapy; Z79.899 Other long term (current) drug therapy; Z90.49 Acquired absence of other specified parts of digestive tract; Z90.710 Acquired absence of both cervix and uterus; W19.XXXA Unspecified fall, initial encounter
CPT/HCPCS: 36415; 71260; 74177; 80048; 85025; 96374; 99284; J1885; Q9967

== ENCOUNTER 2025-09-30 06:52 | Day surgery (SDC) | payer BC, OTHER ==
[2025-09-30 07:26] LABS: PLATELET COUNT,PLT 249.0 K/uL (130-375); RED BLOOD CELL COUNT 4.9 M/uL (3.77-5.24); WHITE BLOOD CELL COUNT,WBC 4.0 K/uL (3.2-11.0)
[2025-09-30] MEDS ORDERED: Propofol 200 MG/20 ML SDV ONE (07:38)
[2025-09-30] MEDS ORDERED: fentaNYL 250 MCG/5 ML SDV ONE (07:38)
[2025-09-30] MEDS ORDERED: Dexamethasone 4 MG/ML SDV ONE (07:38)
[2025-09-30] MEDS ORDERED: Ondansetron 4 MG/2 ML SDV ONE (07:38)
[2025-09-30] MEDS: Lactated Ringers 1,000 ML IV SCH (07:41)
[2025-09-30] MEDS: Nozin Nasal Sanitizer NASBOTH ONE (07:59)
[2025-09-30 08:47] LABS: A/G RATIO 0.9 (1.2-2.2); ALANINE AMINOTRANSFERASE,ALT 34 U/L (12-78); ASPARTATE AMNIOTRANSFERASE,AST 25 U/L (15-37); BILIRUBIN TOTAL 0.5 mg/dL (0.2-1.0); BLOOD UREA NITROGEN,BUN 19 mg/dL (7-18); CARBON DIOXIDE,CO2 27 mmol/L (21-32); CHLORIDE,CL 102 mmol/L (100-108); CREATININE 0.8 mg/dL (0.6-1.0); EST CRCL DRUG DOSING (CG) 72.23 mL/min; ESTIMATED GFR 83 mL/min (>60); GLUCOSE RANDOM 94 mg/dL (74-106); POTASSIUM,K 4.2 mmol/L (3.6-5.2); PROTEIN TOTAL,TP 7.4 g/dL (6.4-8.2); SODIUM,NA 138 mmol/L (140-148)
[2025-09-30 12:24] VITALS: BP 123/78; PULSE 87
== END 2025-09-30 11:30 | disposition home or self-care (01) ==
LOC: JP.SDS 06:52
PROVIDERS: ATTEND Specialist
DX: M75.41 Impingement syndrome of right shoulder (principal); M75.111 Incomplete rotator cuff tear or rupture of right shoulder, not specified as traumatic
CPT/HCPCS: 36415; 80053; 85027; A9270; C1713; J0665; J0690; J1100; J2405; J2704; J3010; J7120; J3490